=== PATIENT | female | born 1965 | race Hispanic/Latino ===

== ENCOUNTER 2017-10-24 14:51 | Observation (INO) | payer MEDICAID, SELFPAY ==
[2017-10-24] VITALS (18 sets, daily range): BP systolic 115–190; BP diastolic 72–110; PULSE 54–98; RESP 12–21; TEMP 36.3–36.9; O2SAT 95–99; BMI 29.7; BMI 27.4; BMI 27.5
[2017-10-24 15:11] LABS: Bedside Glucose 100 mg/dL (70-110)
--- NOTE | 2017-10-24 15:21 | CT_ITS ---
STUDY: CT BRAIN WITHOUT CONTRAST REASON FOR EXAM: Female, 52 years old. Slurred speech. Right facial droop for 2 days. RADIATION DOSAGE (If Supplied By Facility): CTDIvol = ( 44.99 ) mGy, DLP = ( 745.49 ) mGycm TECHNIQUE: Transaxial CT imaging of the brain was performed without administration of intravenous contrast material. Individualized dose optimization techniques were used for this CT. COMPARISON: Comparison is made with prior study dated April 10, 2017. FINDINGS: Normal soft tissue structures. Normal calvarium. Normal size ventricles and extra-axial spaces for the patient's age. Normal white matter tracts of the cerebral hemispheres. Normal basal ganglia and thalami. Normal brainstem. Normal cerebellum. There is no intracranial hemorrhage. There are no findings of an acute ischemic infarction. Normal visualized paranasal sinuses. CT/Brain/Head without Contrast IMPRESSION: Normal unenhanced CT scan of the brain. Electronically Signed: Vinh Win MD at 15:55 EDT Tel [phone], Service support ,
--- NOTE | 2017-10-24 15:21 | EKG12_ITS ---
Test Reason : NEURO S/SX Blood Pressure : / mmHG Vent. Rate : 060 BPM Atrial Rate : 060 BPM P-R Int : 162 ms QRS Dur : 114 ms QT Int : 424 ms P-R-T Axes : 036 -10 036 degrees QTc Int : 424 ms Normal sinus rhythm Normal ECG Confirmed by CHAZ BURNS ([id number]), web content editor FERNANDO MCCLURE ([id number]) on 11/05/2017 5:39:43 PM Referred By: CONSUELO Confirmed By:CHAZ BURNS
--- NOTE | 2017-10-24 15:25 | RAD_ITS ---
STUDY: X-RAY CHEST REASON FOR EXAM: Female, 52 years old. History of stroke. TECHNIQUE: Single AP portable view of the chest. COMPARISON: Comparison is made with prior study dated April 10, 2017. FINDINGS: EKG electrodes are seen. Limited inspiratory effort with impaired aeration at the lung bases. There is no demonstrated pleural abnormality. Normal size heart. Normal mediastinum and edwin. Normal visualized pulmonary arteries. There is atherosclerotic tortuosity of the aortic arch and descending thoracic aorta. There are degenerative changes of the visualized thoracic spine. Normal visualized ribs, clavicles, and shoulders. There is no demonstrated abnormality of the visualized soft tissue structures of the upper abdomen. RAD/Chest 1 View IMPRESSION: Limited inspiration. Impaired aeration at both lung bases. Electronically Signed: Vinh Win MD at 15:43 EDT Tel [phone], Service support ,
[2017-10-24 15:43] LABS: Bacteria 0 SEEN /hpf (None Seen); Mucous, Urine 0 SEEN /hpf (<or=2+); Red Blood Cells-Urine 0 SEEN /hpf (0-5)
[2017-10-24 15:49] LABS: Absolute Lymphocyte Count 2.69 X10^3/ul (0.83-4.51); Absolute Neutrophil Count 3.3 X10^3/uL (2.0-7.7); Basophil# 0.03 X10^3/uL; Basophil% 0.5 % (0-1); Eosinophil# 0.12 X10^3/uL; Eosinophils% 1.8 % (0-5); Hematocrit 40.4 % (37-47); Hemoglobin 13.7 g/dl (12.0-15.0); Lymphocyte # 2.69 X10^3/ul (4.0); Lymphocyte % 41.3 % (19-41); Mean Corp Hgb Conc 33.9 g/gl (32-36); Mean Corpuscular Hgb 31.2 pg (27.0-32.0); Mean Platelet Vol. 10.5 fl (6.2-12.0); Monocyte# 0.39 X10^3/uL; Neutrophil # 3.27 X10^3/uL (2.7-7.7); Neutrophil % 50.2 % (47-70); Platelet Count 215 K/mm3 (150-450); RBC Distribution Width CV 13.3 % (11.6-14.6); RBC Distribution Width SD 44.7 fl (35.1-43.9); Red Blood Count 4.39 M/mm3 (4.2-5.4); White Blood Count 6.5 K/mm3 (4.4-11.0)
[2017-10-24 15:54] LABS: Color, Urine Yellow (Yellow); Glucose, Dipstick Normal (Normal); Ketone-Dipstick Negative (Negative); Leukocyte Esterase-Dipstick 100 /ul (Negative); Nitrite-Dipstick Negative (Negative); Occult Blood-Urine Negative /ul (Negative); Protein-Dipstick Negative (Negative); Specific Gravity, Urine 1.005 (1.002-1.030); Urine Bilirubin Dipstick Negative (Negative); Urine Clarity Clear (Clear); Urine Urobilinogen Normal (Normal)
[2017-10-24] MEDS: Morphine 4 MG/ML Syringe IV (15:55)
[2017-10-24] MEDS: Ondansetron 4 MG/2 ML Vial IV (15:55)
[2017-10-24] MEDS: 0.9% Normal Saline 1,000 ML 100 ML IV (15:55)
[2017-10-24 15:56] LABS: Partial Thromboplast Time 28.1 Seconds (24.1-36.2)
[2017-10-24 16:00] LABS: POSITIVE COUNT NO; POSITIVE DIFFERENTIAL NO; POSITIVE MORPHOLOGY NO
[2017-10-24 16:05] LABS: Squamous Epithelial Cells - UA 0-5 SEEN /hpf (5-10); White Blood Cells 0-5 SEEN /hpf (0-5)
[2017-10-24 16:10] LABS: Anion Gap 8 (5-15); BUN 16 mg/dL (7-18); BUN/Creat Ratio 20.4 RATIO (10-20); Calcium,Total 8.6 mg/dL (8.5-10.1); Chloride 105 mmol/L (98-107); Creatinine, Serum 0.78 mg/dL (0.55-1.02); EST Glomerular Filtration Rate 81 mL/min (>60); Est Glom Filt Rate - Afr Amer 98 mL/min (>60); Estimated Creatinine Clearance 75.06 ml/min; Glucose 91 mg/dL (74-106); Potassium 3.4 mmol/L (3.5-5.1); Sodium Level 139 mmol/L (136-145)
--- NOTE | 2017-10-24 16:12 | CT_ITS ---
CTA of the neck Indication slurred speech and facial droop TECHNIQUE: CTA of the neck was performed scanning in a dynamic enhanced fashion from the cervicothoracic junction to the skull base followed by sagittal and coronal reconstructions. Radiographic technique was optimized to limit patient radiation dose. FINDINGS: There is minor soft plaque seen within the common carotids carotid bulbs and internal carotids bilaterally without evidence for hemodynamically significant stenosis. The vertebrals are codominant and normal in caliber without appreciable plaque. CT/CTA Neck W/WO Contrast IMPRESSION: Minor atherosclerotic plaquing. No evidence for hemodynamically significant carotid stenosis utilizing NASCET criteria Electronically Signed: Charlse Hodgson MD at 17:03 EDT , Service support ,
--- NOTE | 2017-10-24 16:12 | CT_ITS ---
STUDY: CTA OF THE BRAIN REASON FOR EXAM: Female, 52 years old. Possible stroke RADIATION DOSAGE (If Supplied By Facility): CTDIvol = ( 21.90 ) mGy, DLP = ( 720.93 ) mGycm TECHNIQUE: CT angiography was performed with a multi-detector CT scanner. Data acquisition was obtained from the skull base through the vertex following intravenous administration of ml of . MIP images were reconstructed from the axial data set. Post-processing of the angiographic images was performed, with multiplanar reformation and 3D reconstruction. Individualized dose optimization techniques were used for this CT. COMPARISON: None. FINDINGS: Normal bilateral petrous carotid arteries. Normal right cavernous carotid artery with a normal supraclinoid bifurcation. Normal left cavernous carotid artery with a normal supraclinoid bifurcation. Normal right A1 segments of the anterior cerebral artery. Normal left A1 segments of the anterior cerebral artery. Normal intact anterior communicating artery (ACOM). Normal bilateral A2 segments of the anterior cerebral arteries. Normal right M1 and M2 segments of the middle cerebral arteries, with a normal M1 bifurcation. Normal left M1 and M2 segments of the middle cerebral arteries, with a normal M1 bifurcation. Posterior communicating arteries are not visualized consistent with normal development old variant. Normal bilateral vertebral arteries. Normal basilar artery with a normal basilar bifurcation. The visualized bilateral superior cerebellar (SCA) arteries are normal. Normal bilateral P1, P2 and visualized P3 segments of the posterior cerebral arteries. There is no demonstrated aneurysm of the [place]. There is no demonstrated abnormality of the visualized brain. CT/CTA Head W/WO Contrast IMPRESSION: Normal [place] without a demonstrated aneurysm or hemodynamically significant stenosis. Electronically Signed: Charles Hodgson MD at 17:06 EDT , Service support ,
--- NOTE | 2017-10-24 18:26 | HP.PCM_ITS ---
Problem List (1) Depression Status: Chronic (2) Hypertension Status: Chronic History of Present Illness Date of Admission: 10/24/17 Chief Complaint: Headache, reported facial droop and slurred speech. The patient is a 52 year old F with past medical history as mentioned above presented to the emergency department because of headache, reported slurred speech and facial droop. The patient is Vietnamese speaker and she does not speak Colombian. Her son was at the bedside and he was translating for him. According to the son, and main presenting complaint was headache that started earlier today. Patient mentioned that the headache is in both sides of her head, temporal region, throbbing headache, severe, radiates to her back of the neck and without aggravating or relieving factors. Reportedly, patient had right sided facial droop and she had one episode of slurred speech with her she was not able to get the proper words out. Her son mentioned that she had a history of polio and she has chronic droop on the right side of his face although it was not very obvious on examination. In the emergency department, her vital signs were stable. Her routine blood work was unremarkable except for mild hypokalemia with potassium of 3.4. Urinalysis revealed no evidence of acute UTI or cystitis. EKG revealed normal sinus rhythm without evidence of acute ischemic changes or cardiac arrhythmias. CT scan brain showed no acute infarction or hemorrhage. CTA of the head and neck showed no evidence of hemodynamically significant vascular disease or stenosis. Chest x-ray showed no acute infiltrate, consolidation or effusion. She is being admitted for headache and strokelike symptoms for evaluation. Past Medical History Past Medical History (Chronic Problems): Chronic Problems Depression (Chronic) Hypertension (Chronic) Allergies Penicillins Allergy (Verified 10/24/17 14:53) Itching Home Medications: Ambulatory Orders Medication Instructions Recorded Hydrochlorothiazide 12.5 mg PO DAILY 10/24/17 Lisinopril [Zestril] 10 mg PO DAILY 10/24/17 Sertraline HCl [Zoloft] 50 mg PO DAILY 10/24/17 Surgical History: cholecystectomy, tonsillectomy Psychiatric History: Depression PREVENTION SPECIALIST History: No pertinent PREVENTION SPECIALIST history Smoking Status: Current every day smoker Alcohol: None Drugs: None - *Family History Maternal History Items: No pertinent history Paternal History Items: No pertinent history Review of Systems Constitutional: Reports: Weakness. Denies: Anorexia, Chills, Fever Eyes: Denies: Blurred vision, Double vision, Drainage, Redness HEENT: Reports: Head Aches. Denies: Difficulty Hearing, Ear Pain, Eye Pain, Nasal Congestion, Sore Throat Cardiovascular: Denies: Chest Pain, Chest Pressure, Chest Tightness, Edema, Light Headedness, Palpitations, Syncope Respiratory: Denies: Cough, Pleuritic Pain, Shortness of Breath, Sputum production, Wheezing Gastrointestinal: Denies: Abdominal Pain, Constipation, Diarrhea, Nausea, Vomiting Genitourinary: Denies: Dysuria, Frequency, Hematuria Musculoskeletal: Denies: Arm Pain, Back Pain, Foot Pain Skin: Denies: Dryness, Rash Neurological: Reports: Change in Speech, Headaches. Denies: Balance problems, Numbness, Tingling Psychiatric: Reports: Depression. Denies: Anxiety Endocrine: Denies: Change in Body Habitus, Polydipsia VTE Information - Inpt Only VTE Present on Admission: No VTE Mechan Device Prophylaxis: None VTE Pharm Prophylaxis ordered?: No - Physical Exam General: Alert, Oriented x3, Cooperative, No apparent distress HEENT: Atraumatic, PERRLA, EOMI Oral: Moist Mucosa, No Gingival or Mucosal Lesions/ Ulcerations Neck: Supple, No JVD, Negative Carotid Bruits, Trachea Midline, Thyroid Normal Size and Texture Lungs: Clear to auscultation, No rhonchi, No wheeze, No rales Cardiovascular: Regular rate, Regular Rhythm, Normal S1, Normal S2, No murmurs, PMI Normal Abdomen: Bowel Sounds Present, Soft, Non Tender, Non-Distended, No Hepato- splenomegaly Extremities: No clubbing, No cyanosis, No edema Skin: No rashes, No breakdown Lymphatic: No Cervical, Supraclavicular, or Inguinal Adenopathy Neurological: Cranial nerves II-XII grossly intact, Motor Exam 5/5 strength throughout Psych/Mental Status: Normal Affect, Appropriate, Alert and oriented to time, place, person, mood and affect Vital Signs Temp Pulse Resp BP Pulse Ox 97.4 F L 98 12 115/72 96 10/24/17 14:54 10/24/17 18:06 10/24/17 18:06 10/24/17 18:06 10/24/17 18:06 Oxygen Delivery Method Room Air Laboratory Tests 3 10/24/17 10/24/17 10/24/17 Range/Units 15:37 15:05 14:58 WBC (4.4-11.0) K/mm3 RBC (4.2-5.4) M/mm3 Hgb (12.0-15.0) g/dl Hct (37-47) % MCV (81-99) fL MCH (27.0-32.0) pg MCHC (32-36) g/gl RDW (11.6-14.6) % RDW Differential (35.1-43.9) fl Plt Count (150-450) K/mm3 MPV (6.2-12.0) fl Immature Gran % (Auto) (0.0-0.9) % Neut % (Auto) (47-70) % Lymph % (Auto) (19-41) % Owen % (Auto) (0-10) % Eos % (Auto) (0-5) % Baso % (Auto) (0-1) % Absolute Neuts (auto) (2.0-7.7) X10^3/uL Absolute Lymphs (auto) (0.83-4.51) X10^3/ul Total Counted PT (11.7-14.9) SECONDS INR APTT (24.1-36.2) Seconds Sodium 139 (136-145) mmol/L Potassium 3.4 L (3.5-5.1) mmol/L Chloride 105 (98-107) mmol/L Carbon Dioxide 26.0 (21.0-32.0) mmol/L Anion Gap 8 (5-15) BUN 16 (7-18) mg/dL Creatinine 0.78 (0.55-1.02) mg/dL Estim Creat Clear Calc 75.06 ml/min Est GFR (MDRD) Af Amer 98 (>60) mL/min Est GFR (MDRD) Non-Af 81 (>60) mL/min BUN/Creatinine Ratio 20.4 H (10-20) RATIO Glucose 91 (74-106) mg/dL Calcium 8.6 (8.5-10.1) mg/dL Urine Color Yellow (Yellow) Urine Clarity Clear (Clear) Urine pH 7.0 (5.0 - 8.0) Ur Specific [place] 1.005 (1.002-1.030) Urine Protein Negative (Negative) mg/dl Urine Glucose (UA) Normal (Normal) mg/dl Urine Ketones Negative (Negative) mg/dl Urine Occult Blood Negative (Negative) /ul Urine Nitrite Negative (Negative) Urine Bilirubin Negative (Negative) mg/dL Urine Urobilinogen Normal (Normal) mg/dl Ur Leukocyte Esterase 100 H (Negative) /ul Urine RBC 0 SEEN (0-5) /hpf Urine WBC 0-5 SEEN (0-5) /hpf Ur Squamous Epith Cells 0-5 SEEN (5-10) /hpf Urine Bacteria 0 SEEN (None Seen) /hpf Urine Mucus 0 SEEN (<or=2+) /hpf POC Glucose 100 (70-110) mg/dL 3 10/24/17 10/24/17 Range/Units 14:58 14:58 WBC 6.5 (4.4-11.0) K/mm3 RBC 4.39 (4.2-5.4) M/mm3 Hgb 13.7 (12.0-15.0) g/dl Hct 40.4 (37-47) % MCV 92.0 (81-99) fL MCH 31.2 (27.0-32.0) pg MCHC 33.9 (32-36) g/gl RDW 13.3 (11.6-14.6) % RDW Differential 44.7 H (35.1-43.9) fl Plt Count 215 (150-450) K/mm3 MPV 10.5 (6.2-12.0) fl Immature Gran % (Auto) 0.200 (0.0-0.9) % Neut % (Auto) 50.2 (47-70) % Lymph % (Auto) 41.3 H (19-41) % Owen % (Auto) 6.0 (0-10) % Eos % (Auto) 1.8 (0-5) % Baso % (Auto) 0.5 (0-1) % Absolute Neuts (auto) 3.3 (2.0-7.7) X10^3/uL Absolute Lymphs (auto) 2.69 (0.83-4.51) X10^3/ul Total Counted Not Reportable PT 13.0 (11.7-14.9) SECONDS INR 1.0 APTT 28.1 (24.1-36.2) Seconds Sodium (136-145) mmol/L Potassium (3.5-5.1) mmol/L Chloride (98-107) mmol/L Carbon Dioxide (21.0-32.0) mmol/L Anion Gap (5-15) BUN (7-18) mg/dL Creatinine (0.55-1.02) mg/dL Estim Creat Clear Calc ml/min Est GFR (MDRD) Af Amer (>60) mL/min Est GFR (MDRD) Non-Af (>60) mL/min BUN/Creatinine Ratio (10-20) RATIO Glucose (74-106) mg/dL Calcium (8.5-10.1) mg/dL Urine Color (Yellow) Urine Clarity (Clear) Urine pH (5.0 - 8.0) Ur Specific [place] (1.002-1.030) Urine Protein (Negative) mg/dl Urine Glucose (UA) (Normal) mg/dl Urine Ketones (Negative) mg/dl Urine Occult Blood (Negative) /ul Urine Nitrite (Negative) Urine Bilirubin (Negative) mg/dL Urine Urobilinogen (Normal) mg/dl Ur Leukocyte Esterase (Negative) /ul Urine RBC (0-5) /hpf Urine WBC (0-5) /hpf Ur Squamous Epith Cells (5-10) /hpf Urine Bacteria (None Seen) /hpf Urine Mucus (<or=2+) /hpf POC Glucose (70-110) mg/dL Clinical Impression(s) from Imaging Studies Brain CT 10/24/17 15:21 IMPRESSION: Normal unenhanced CT scan of the brain. Electronically Signed: Vinh Win MD at 15:55 EDT Tel [phone], Service support , Chest X-Ray 10/24/17 15:25 IMPRESSION: Limited inspiration. Impaired aeration at both lung bases. Electronically Signed: Vinh Win MD at 15:43 EDT Tel [phone], Service support , Head CTA 10/24/17 16:12 IMPRESSION: Normal [place] without a demonstrated aneurysm or hemodynamically significant stenosis. Electronically Signed: Charles Hodgson MD at 17:06 EDT , Service support , Neck CTA 10/24/17 16:12 IMPRESSION: Minor atherosclerotic plaquing. No evidence for hemodynamically significant carotid stenosis utilizing NASCET criteria Electronically Signed: Charles Hodgson MD at 17:03 EDT , Service support , Assessment/Plan This is a 52 years old female patient presented to the medicine because of bitemporal headache and reported and questionable slurred speech and facial droop and she is being admitted for strokelike symptoms for evaluation. #1 bitemporal headache/slurred speech/right facial droop: Main complaint was bitemporal headache and generalized weakness. Her symptoms is not typical for stroke or TIA. Initial workup including CT scan brain without contrast, CTA of the head and neck was unremarkable. Vital signs are stable. Routine blood work is unremarkable. She does have history of hypertension. Plan: Admit to PCU for observation, cardiac monitoring, NIH stroke scale, start baby aspirin, Lipitor, fasting lipid profile, MRI brain, 2D echocardiogram, PT OT evaluation and treatment. #2 hypertension: Blood pressure stable, continue lisinopril and HCTZ. #3 depression: Continue Zoloft. #4 DVT prophylaxis: Low risk patient, no prophylaxis indicated. This note was generated with [employer] dictation software. It may contain incorrect words, spelling, and punctuation that were not noted in checking the note before signing. Code Visit OBSV E&M: 23079 Initial observation care L3
--- NOTE | 2017-10-24 18:28 | ECHOD_ITS ---
Reason For Study: TIA/CVA Procedure This was a 2D Doppler, Color Flow transthoracic echocardiogram. Exam performed portable in patient room. Left Ventricle Normal size and thickness. The estimated ejection fraction is 65 %. Normal diastology for age. No regional wall motion abnormalities noted. Right Ventricle Normal size and thickness. Normal systolic function. Atria The left atrium is mildly enlarged. Normal right atrium. Normal atrial septum. Bubble contrast study negative for right to left interatrial shunt. Mitral Valve The mitral valve is structurally normal. No prolapse or stenosis seen. Tricuspid Valve Normal tricuspid valve. Mild (1+) tricuspid valve insufficiency. Right ventricular systolic pressure estimated to be 26 mmHg. Aortic Valve Trisinus/trileaflet aortic valve. Pulmonic Valve Normal pulmonic valve. Great Vessels Normal aortic root. Normal arch. Normal inferior vena cava. Inferior vena cava collapse with sniff. Pericardium/Pleural No pericardial effusion. Medication Performed a rapid injection of agitated mix of 9 cc saline and 1cc air to assess for atrial septal defect. MMode/2D Measurements & Calculations LVIDd: 4.2 cm IVSd: 1.0 cm Ao root diam: 3.1 cm LVIDs: 2.7 cm LVPWd: 1.1 cm LA dimension: 3.7 cm RVDd: 2.7 cm FS: 36.7 % LAV(MOD-bp): 72.9 ml LVAd ap4: 29.8 cm2 SV(MOD-sp4): 52.7 ml LAV(MOD-bp) Indexed: 38.7 ml/m2 EDV(MOD-sp4): 96.6 ml LAV(MOD-sp2): 77.8 ml EDV(sp4-el): 100.9 ml LAV(MOD-sp4): 68.3 ml LVAs ap4: 18.0 cm2 ESV(MOD-sp4): 43.8 ml ESV(sp4-el): 44.4 ml EF(MOD-sp4): 54.6 % EF(sp4-el): 56.0 % SV(sp4-el): 56.5 ml LA A4 area: 22.5 cm2 RA A4 area: 17.5 cm2 Time Measurements MV dec time: 0.26 sec Doppler Measurements & Calculations MV E max kenneth: 82.0 cm/sec Lat Peak E' Kenneth: 10.7 cm/sec Med Peak E' Kenneth: 8.4 cm/sec MV A max kenneth: 67.3 cm/sec E/E' lat: 7.6 E/E' med: 9.8 MV E/A: 1.2 Ao V2 max: 161.6 cm/sec LV V1 max: 109.2 cm/sec PA V2 max: 92.9 cm/sec Ao max P.4 mmHg LV V1 max P.8 mmHg TR max kenneth: 237.1 cm/sec TR max P.5 mmHg Interpretation Summary The estimated ejection fraction is 65 %. Normal diastology for age. Bubble contrast study negative for right to left interatrial shunt. Mild (1+) tricuspid valve insufficiency. Right ventricular systolic pressure estimated to be 26 mmHg. There is no comparison study available. Ordering Physician: Chel Craven Performed By: Marry Dent RDCS
--- NOTE | 2017-10-24 18:28 | MRI_ITS ---
STUDY: MRI BRAIN WITHOUT CONTRAST REASON FOR EXAM: Female, 52 years old. Right facial droop and slurred speech TECHNIQUE: Standardized multiplanar fat and water weighted pulse sequences were obtained. COMPARISON: CT of the brain on October 24, 2017 FINDINGS: Normal size of the ventricles and extra-axial spaces for the patient's age. Mild periventricular white matter ischemic changes are noted without mass effect or restricted diffusion.. Normal bilateral basal ganglia. Normal thalami. There is no extra-axial fluid accumulation. Normal flow voids within the major intracranial circulation suggesting patency by spin echo criteria. 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 Normal Infundibular stalk, optic chiasm and hypothalamus. Normal tectal plate and pineal gland. Normal midbrain, roxana and medulla. Normal cerebellum. Normal basal cisterns. Normal bilateral temporal bones. Normal bilateral internal auditory canals. No demonstrated orbital abnormality, within the constraints of a routine brain study. There is mild mucosal thickening of the maxillary ethmoid and sphenoid sinuses. Normal calvarium and skull base. Normal visualized soft tissue structures. Normal visualized upper cervical spine. MRI/Brain without Contrast IMPRESSION: Mild periventricular white matter ischemic changes. No evidence for acute infarct. 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
[2017-10-24] MEDS: Acetaminophen 325 MG Tablet 650 MG PO (20:49)
[2017-10-25] VITALS (14 sets, daily range): BP systolic 96–152; BP diastolic 55–78; PULSE 55–67; RESP 16–18; TEMP 36.4–36.9; O2SAT 94–98; BMI 27.4
--- NOTE | 2017-10-25 | ED.VISSUMM ---
- ER Visit Summary Date of Service: 10/25/17 Chief Complaint: Headache, slurred speech, right facial droop History of Present Illness: The patient is a [address] Carter. She reports that she has a headache that began 2 days ago. It is a throbbing pain over both temples. Is gradually gotten worse. Is 9 out of 10 severity. She denies any similar headaches in the past. No recent injury to her head. Patient reports that she has right facial droop and slurred speech that began 2 days ago as well. She denies any fever or chills. She has had nausea without vomiting. She also complains of generalized weakness. Physical Examination: Vitals: Stable. Afebrile. General: Well-nourished and well-developed. Head: Normocephalic atraumatic. Neck: Supple, no lymphadenopathy. No JVD. Nontender. Cardiovascular: Regular rate and rhythm. No murmurs. Respiratory: No respiratory distress. Clear to auscultation bilaterally. Abdominal: Soft, nontender, nondistended, normal bowel sounds. No guarding, rebound, or peritoneal signs. Back: Nontender. Extremities: Nontender, no edema. Skin: Normal color, no rash. Neurologic: Alert and oriented ?3. Right facial droop. Otherwise cranial 2 through 12 are intact. She does have slurred speech and dysarthria. Her NIH scale is 4. Psych: Normal affect. Test Results: EKG is sinus at 60 with no acute changes. UA is negative. Coags are normal. Chem-7 is more for potassium 3.4. CBC is more for the facets of 41. CT head is normal. CTA of head shows normal [place]. CTA of neck shows no significant disease. Chest x-ray shows poor inspiration no acute disease. Emergency Department Course and Treatment: Patient has an NIH scale of 4. However, she is not a TPA candidate due to the timeframe of 2 days from onset. She was given morphine and Zofran IV. She is resting comfortably. Treatment Plan: Patient was discussed with Dr. Craven. She will be admitted to the hospital for further evaluation and treatment. Disposition: Admitted in stable condition. Impression: 1. CVA. 2. Cephalgia. This note was generated with e-[employer]ation software. It may contain incorrect words, spelling, and punctuation that were not noted in review of the chart prior to signing ED Disposition - Plan for ED Patient: Disposition: Acute Care Hospital [facility] Chief Complaint: Neuro S/Sx
--- NOTE | 2017-10-25 00:03 | ED.DCSUM_ITS ---
- ER Visit Summary Date of Service: 10/25/17 Chief Complaint: Headache, slurred speech, right facial droop History of Present Illness: The patient is a [address] Carter. She reports that she has a headache that began 2 days ago. It is a throbbing pain over both temples. Is gradually gotten worse. Is 9 out of 10 severity. She denies any similar headaches in the past. No recent injury to her head. Patient reports that she has right facial droop and slurred speech that began 2 days ago as well. She denies any fever or chills. She has had nausea without vomiting. She also complains of generalized weakness. Physical Examination: Vitals: Stable. Afebrile. General: Well-nourished and well-developed. Head: Normocephalic atraumatic. Neck: Supple, no lymphadenopathy. No JVD. Nontender. Cardiovascular: Regular rate and rhythm. No murmurs. Respiratory: No respiratory distress. Clear to auscultation bilaterally. Abdominal: Soft, nontender, nondistended, normal bowel sounds. No guarding, rebound, or peritoneal signs. Back: Nontender. Extremities: Nontender, no edema. Skin: Normal color, no rash. Neurologic: Alert and oriented ?3. Right facial droop. Otherwise cranial 2 through 12 are intact. She does have slurred speech and dysarthria. Her NIH scale is 4. Psych: Normal affect. Test Results: EKG is sinus at 60 with no acute changes. UA is negative. Coags are normal. Chem-7 is more for potassium 3.4. CBC is more for the facets of 41. CT head is normal. CTA of head shows normal [place]. CTA of neck shows no significant disease. Chest x-ray shows poor inspiration no acute disease. Emergency Department Course and Treatment: Patient has an NIH scale of 4. However, she is not a TPA candidate due to the timeframe of 2 days from onset. She was given morphine and Zofran IV. She is resting comfortably. Treatment Plan: Patient was discussed with Dr. Craven. She will be admitted to the hospital for further evaluation and treatment. Disposition: Admitted in stable condition. Impression: 1. CVA. 2. Cephalgia. This note was generated with [employer] software. It may contain incorrect words, spelling, and punctuation that were not noted in review of the chart prior to signing ED Disposition - Plan for ED Patient: Disposition: Acute Care Hospital [facility] Chief Complaint: Neuro S/Sx
[2017-10-25] MEDS: Acetaminophen 325 MG Tablet 650 MG PO ×3 (01:14→18:37)
[2017-10-25] MEDS: Enoxaparin 40 MG/0.4 ML Syringe SC (05:26)
[2017-10-25] MEDS: Ondansetron 4 MG/2 ML Vial IV (05:27)
[2017-10-25] MEDS: 0.9% NaCl Peripheral Flush Adult/Peds IV (05:27)
[2017-10-25 06:51] LABS: Anion Gap 8 (5-15); BUN 14 mg/dL (7-18); BUN/Creat Ratio 19.5 RATIO (10-20); Calcium,Total 8.1 mg/dL (8.5-10.1); Chloride 111 mmol/L (98-107); Cholesterol 228 mg/dL (200); Creatinine, Serum 0.72 mg/dL (0.55-1.02); EST Glomerular Filtration Rate 90 mL/min (>60); Est Glom Filt Rate - Afr Amer 109 mL/min (>60); Estimated Creatinine Clearance 81.31 ml/min; Glucose 92 mg/dL (74-106); High Density Lipoprotein 30 mg/dL; Sodium Level 144 mmol/L (136-145); Triglycerides 273 mg/dL; Very Low Density Lipoprotein 55 mg/dL (5-40)
[2017-10-25] MEDS: Aspirin 81 MG TAB.CHEW PO (08:39)
[2017-10-25] MEDS: HYDROCHLOROTHIAZIDE 12.5 MG CAPSULE PO (10:54)
[2017-10-25] MEDS: Lisinopril 10 MG Tablet PO (10:54)
[2017-10-25] MEDS: Sertraline 50 MG Tablet PO (11:00)
--- NOTE | 2017-10-25 17:46 | PCM.PN.HOSP ---
Subjective: CC: Headache Objective: she rate her headache as 5 out of 10, she still has significant nausea but no vomiting. Vitals/I&O's: Vital Signs Temp Pulse Resp BP Pulse Ox 98.4 F 55 L 16 119/60 98 10/25/17 14:30 10/25/17 14:30 10/25/17 14:30 10/25/17 14:30 10/25/17 14:30 Oxygen Delivery Method Room Air Weight: 74.843 kg Body Mass Index (BMI) 27.4 Intake and Output for Last 24 Hours 10/23/17 10/24/17 10/25/17 23:59 23:59 23:59 Intake Total 395 / 395 500 / 500 Output Total 2 / 2 Balance 395 / 395 498 / 498 General: Alert, Oriented x3 HEENT: Atraumatic Oral: Moist Mucosa Neck: Supple, No JVD Lungs: Clear to auscultation Cardiovascular: Regular rate, Normal S1, Normal S2 Abdomen: Bowel Sounds Present, Soft, Non Tender Neurological: Cranial nerves II-XII grossly intact, Neuro grossly intact, Motor Exam 5/5 strength throughout Laboratory Results 10/25/17 06:15: Sodium 144, Potassium 4.0, Chloride 111 H, Carbon Dioxide 25.0, Anion Gap 8, BUN 14, Creatinine 0.72, Estim Creat Clear Calc 81.31, Est GFR (MDRD) Af Amer 109, Est GFR (MDRD) Non-Af 90, BUN/Creatinine Ratio 19.5, Glucose 92, Calcium 8.1 L, Triglycerides 273 H, Cholesterol 228 H, LDL Cholesterol 143 H, VLDL Cholesterol 55 H, HDL Cholesterol 30 L Current Medications Acetaminophen (Tylenol) 650 mg PO Q4H PRN PRN PRN Reason: Headache/Temp>99F Last Admin: 10/25/17 08:39 Dose: 650 mg Aspirin (Aspirin, Baby) 81 mg PO DAILY@0800 [facility] Last Admin: 10/25/17 08:39 Dose: 81 mg Atorvastatin Calcium (Lipitor) 80 mg PO QHS [facility] Hydrochlorothiazide (Hydrochlorothiazide) 12.5 mg PO DAILY [facility] Last Admin: 10/25/17 10:54 Dose: 12.5 mg Ketorolac Tromethamine (Toradol) 15 mg IM Q6H PRN PRN PRN Reason: HEADACHE Stop: 10/30/17 14:21 Lisinopril (Zestril) 10 mg PO DAILY [facility] Last Admin: 10/25/17 10:54 Dose: 10 mg Magnesium Hydroxide (Milk Of Magnesia) 30 ml PO DAILY PRN PRN Reason: Constipation Ondansetron HCl (Zofran) 4 mg IV Q6H PRN PRN PRN Reason: NAUSEA/VOMITING Last Admin: 10/25/17 05:27 Dose: 4 mg Pantoprazole Sodium (Protonix) 40 mg PO DAILY [facility] Promethazine HCl (Phenergan) 6.25 mg IV Q4H PRN PRN PRN Reason: NAUSEA/VOMITING Sertraline HCl (Zoloft) 50 mg PO DAILY [facility] Last Admin: 10/25/17 11:00 Dose: 50 mg Sodium Chloride () 5 - 30 ml IV UD PRN PRN Reason: SALINE FLUSH Last Admin: 10/25/17 05:27 Dose: 10 ml Medical Necessity - Tobacco Use Smoking Status: Unknown if ever smoked Tobacco Use: Cigarettes Assessment/Plan 1 Bitemporal headache; will star on Toradol. Will obtain MRI of the brain. 2 hypertension; continue lisinopril and HCTZ. 3 depression; on Zoloft. 4 DVT prophylaxis; early ambulation. Code Visit OBSV E&M: 06404 Observ/hosp same date L1
[2017-10-25] MEDS: Ketorolac 15 MG/ML Vial IM (21:30)
[2017-10-25] MEDS: Atorvastatin Calcium 80 MG Tablet PO (21:30)
[2017-10-26] VITALS (7 sets, daily range): BP systolic 123–144; BP diastolic 75–79; PULSE 52–67; RESP 16–18; TEMP 36.4–36.8; O2SAT 96–98; BMI 27.4
--- NOTE | 2017-10-26 07:58 | NURSING ---
pt back from stress test. refusing to put on heart monitor, educated on purpose of heart monitor, pt still refusing.
[2017-10-26] MEDS: Lisinopril 10 MG Tablet PO (08:39)
[2017-10-26] MEDS: Pantoprazole Sodium 40 MG Tablet PO (08:39)
[2017-10-26] MEDS: Aspirin 81 MG TAB.CHEW PO (08:39)
[2017-10-26] MEDS: HYDROCHLOROTHIAZIDE 12.5 MG CAPSULE PO (08:39)
[2017-10-26] MEDS: Sertraline 50 MG Tablet PO (08:41)
--- NOTE | 2017-10-26 11:28 | PCM.DC ---
- Discharge Diagnoses Current Active Problems: Bitemporal headache Depression (Chronic) Hypertension (Chronic) You will use the following diet at home:: No restrictions Allergies/Adverse Reactions: Allergies Penicillins Allergy (Verified 10/24/17 14:53) Itching Medications to take at Discharge Hydrochlorothiazide 12.5 mg PO DAILY 10/24/17 Lisinopril [Zestril] 10 mg PO DAILY 10/24/17 Sertraline HCl [Zoloft] 50 mg PO DAILY 10/24/17 Primary Care Physician: Care Physician,No Primary [Primary Care Provider] -
--- NOTE | 2017-10-26 11:29 | PCM.DC.SUM ---
Discharge Date and Diagnosis Date of Admission: 10/24/17 Date of Discharge: 10/26/17 - Secondary Discharge Diagnosis Chronic Problems Depression (Chronic) Hypertension (Chronic) Hospital Course and Treatment Summary of Care Provided: This is a 52 years old female patient presented to the the [facility] with bitemporal headache and reported and questionable slurred speech and facial droop CT scan of the brain done in the emergency room was nonacute placed in the PCU for stroke workup. MRI of the brain showed mild periventricular white matter ischemic changes. 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 Headache was controlled with analgesia prior to her discharge. She was discharged home in a stable condition. Physical exam at the time of discharge; vital signs were stable. He was alert and oriented to time place and person. He did not appear to be any form of distress. S1 and S2 heard no murmur or gallop Lung exam was clear to auscultation with no adventitious sounds. Abdomen was soft nontender with normal bowel sounds. extremity exam did not reveal any edema, palpable pulses bilaterally. Neurologic exam was grossly intact. Discharge Diet: No Restrictions Home Medications: Medications to take at Discharge Hydrochlorothiazide 12.5 mg PO DAILY 10/24/17 Lisinopril [Zestril] 10 mg PO DAILY 10/24/17 Sertraline HCl [Zoloft] 50 mg PO DAILY 10/24/17 Primary Care Physician: Care Physician,No Primary [Primary Care Provider] - Medical Necessity - Tobacco Use Smoking Status: Unknown if ever smoked Tobacco Use: Cigarettes Meaningful Use Info Meaningful Use Diagnoses (Choose all that apply): None applicable Code Visit OBSV E&M: 16093 Observation care discharge
== END 2017-10-26 11:57 | disposition home or self-care (01) ==
LOC: ED 15:26 → PCU 18:11
PROVIDERS: Admitting Provider Hospitalist; Emergency Provider Emergency Medicine; Visit Provider Internal Medicine
DX: R51 Headache (principal); F32.9 Major depressive disorder, single episode, unspecified; Z79.899 Other long term (current) drug therapy; I10 Essential (primary) hypertension; R47.81 Slurred speech; R29.810 Facial weakness; R47.1 Dysarthria and anarthria; B91 Sequelae of poliomyelitis; E87.6 Hypokalemia; F17.210 Nicotine dependence, cigarettes, uncomplicated
CPT/HCPCS: 36415; 70450; 70496; 70498; 70551; 71045; 80048; 80061; 81001; 82962; 85025; 85610; 85730; 93005; 93306; 96361; 96372; 96374; 96375; 96376; 97162; 97165; 99218; 99285; J7030; Q9967; A4216; G0378; J2405

== ENCOUNTER 2023-03-21 11:22 | Emergency (ER) | payer OTHER, SELFPAY ==
[2023-03-21 11:24] VITALS: BP 147/83; PULSE 73; RESP 16; TEMP 36.6; O2SAT 100; BMI 26.4
--- NOTE | 2023-03-21 11:30 | EX.ED.DYSGE1 ---
HPI History of Present Illness Chief Complaint: Complaint Informant: patient Onset/Context/Timing Onset: Month(s) (1.5) Context: Gradual Onset Timing: Continuous Quality: Burning Location: Suprapubic Worsened by: Nothing Relieved by: Nothing Narrative Narrative: Patient presents with suprapubic burning that has been getting worse over the past 1-1/2 months. Patient states her urine feels hot. Patient went to the [facility] urgent care today and had a urinalysis done. Patient states it was read as negative and she was referred to the emergency department for further evaluation. Patient states she was told that she could have cancer. Patient denies any fevers or chills. Patient denies any nausea or vomiting. Patient denies any back pain. Patient denies any chest pain or shortness of breath. Patient denies any abnormal vaginal bleeding or discharge. PFSH PFSH Home Medications hydrochlorothiazide 12.5 mg capsule 12.5 mg PO DAILY WATER PILL 10/24/17 [History Last Taken 10/24/17] lisinopril 10 mg tablet 10 mg PO DAILY BLOOD PRESSURE 10/24/17 [History Last Taken 10/24/17] sertraline 50 mg tablet 50 mg PO DAILY MENTAL HEALTH 10/24/17 [History Last Taken 10/23/17] Allergy/AdvReac Type Severity Reaction Status Date / Time Penicillins Allergy Itching Verified 03/21/23 11:25 Surgical History (Updated 03/21/23 @ 12:[address] Brian Morris DO) H/O right wrist surgery History of back surgery Hx of appendectomy Hx of hand surgery Social History Smoking Status: Unknown if ever smoked ROS ROS ED Constitutional Constitutional ED: Denies chills or fever(s) Eyes Eyes: Denies blurry vision or change in vision ENT ENT ED: Denies rhinorrhea or sore throat Cardiovascular Cardiovascular: Denies chest pain or palpitations Respiratory/Chest Respiratory/Chest: Denies cough or dyspnea Gastrointestinal Gastrointestinal: Reports abdominal pain; Denies nausea or vomiting Genitourinary Genitourinary ED: Reports dysuria; Denies hematuria Musculoskeletal Musculoskeletal: Denies back pain or neck pain Integumentary Denies abscess or rash Neurologic Neurologic: Denies headache(s) or weakness Allergic/Immunologic Allergic/Immunologic ED: Denies mouth swelling or urticaria EXAM Physical Exam Const Vital Signs: 03/21/23 11:24 Temperature 98 F Temperature Source Temporal Pulse Rate 73 Respiratory Rate 16 Blood Pressure 147/83 H Blood Pressure Mean 104 Pulse Ox 100 Oxygen Delivery Method Room Air Positive well nourished and well developed General Appearance ED: well developed and NAD HEENT Reports moist mucous membranes Neck supple and no JVD Resp normal respiratory effort and clear to auscultation bilaterally Cardio regular rate and regular rhythm GI non-distended Palpation: soft and tender suprapubic; Negative for guarding or rebound tenderness present Neuro oriented x3, CN's II-XII intact bilaterally and no sensory deficits noted Sensorium / Orientation: alert Motor Exam: strength 5/5 throughout Psych mental status grossly normal MDM MDM MDM Narrative Medical decision making narrative: Differential diagnosis includes urinary tract infection, gastroenteritis, bowel obstruction, and pelvic mass. CT scan of the abdomen pelvis will be obtained to assess for bowel obstruction and perforation. Urinalysis will be obtained to assess for urinary tract infection. CBC will be obtained to assess for leukocytosis and anemia. Basic metabolic profile will be obtained to assess for electrolyte abnormality and renal function. Lab Data Attestation: I reviewed the patient's lab results. Lab results narrative: CBC was reviewed and was within normal limits. Basic metabolic profile was reviewed and was within normal limits. Urinalysis was reviewed and was within normal limits. Labs: Laboratory Results - last 24 hr 03/21/23 03/21/23 11:52 12:55 WBC 6.7 RBC 4.52 Hgb 13.6 Hct 40.1 MCV 88.7 MCH 30.1 MCHC 33.9 RDW Std Deviation 44.7 H RDW Coeff of Jazlyn 13.9 Plt Count 288 MPV 10.1 Immature Gran % (Auto) 0.300 Neut % (Auto) 53.7 Lymph % (Auto) 35.3 [place] % (Auto) 7.6 Eos % (Auto) 1.9 Baso % (Auto) 1.2 H Absolute Neuts (auto) 3.6 Absolute Lymphs (auto) 2.36 Nucleated RBC % 0 Sodium 139 Potassium 3.7 Chloride 106 Carbon Dioxide 30.0 Anion Gap 3 L BUN 15 Creatinine 0.77 Estim Creat Clear Calc 70.79 Est GFR (MDRD) Af Amer 98 Est GFR (MDRD) Non-Af 81 BUN/Creatinine Ratio 19.4 Glucose 110 H Calcium 8.9 Urine Color Yellow Urine Clarity Sl. Cloudy Urine pH 7.0 Ur Specific [place] 1.010 Urine Protein Negative Urine Glucose (UA) Normal Urine Ketones Negative Urine Occult Blood Negative Urine Nitrite Negative Urine Bilirubin Negative Urine Urobilinogen Normal Ur Leukocyte Esterase Negative Urine RBC 0 SEEN Urine WBC 0 SEEN Ur Squamous Epith Cells 0-5 SEEN Urine Bacteria 0 SEEN Urine Mucus 0 SEEN Radiography Diagnostic Testing: Clinical Impression(s) from Imaging Studies Abdomen/Pelvis CT 03/21/23 12:37 IMPRESSION: Stable infrarenal abdominal aortic aneurysm. Stable low-attenuation mass in the left adrenal gland. Electronically Signed: Vinh Win MD at 13:40 EDT , CT scan of the abdomen pelvis was obtained. There is a stable low-attenuation mass in the left adrenal gland and a stable infrarenal abdominal aortic aneurysm measuring approximately 3 cm. There is no mass noted. There is no free fluid or bowel obstruction. There is no free air noted. This was interpreted by the radiologist and was also independently reviewed by myself. Treatment and Re-Evaluation :: Patient was given IV fluids. Patient was advised of her findings. Patient is feeling better on reevaluation. Patient was instructed to follow-up with her primary care physician in 5 to 7 days. Patient was instructed to drink plenty of fluids. Patient was instructed return if worse in any way. Patient understood and was agreeable with the plan. All questions were answered. Discharge Plan Triage Chief Complaint: Complaint ED Provider: Brian Morris Dx/Rx/DC Orders Clinical Impression: Dysuria Instructions: ED Dysuria, Uncertain Cause (Adult) Prescriptions: No Action hydrochlorothiazide 12.5 MG capsule 12.5 mg PO DAILY sertraline 50 MG tablet 50 mg PO DAILY lisinopril 10 MG tablet 10 mg PO DAILY Primary Care Provider: Reji Carter Referrals: Reji Carter MD [Primary Care Provider] - 3-5 Days Disposition Disposition: Home, Self Care
[2023-03-21 11:57] LABS: Bacteria 0 SEEN /hpf (None Seen); Mucous, Urine 0 SEEN /hpf (<or=2+); Red Blood Cells-Urine 0 SEEN /hpf (0-5); White Blood Cells 0 SEEN /hpf (0-5)
[2023-03-21 12:06] LABS: Color, Urine Yellow (Yellow); Glucose, Dipstick Normal (Normal); Ketone-Dipstick Negative (Negative); Leukocyte Esterase-Dipstick Negative /ul (Negative); Nitrite-Dipstick Negative (Negative); Occult Blood-Urine Negative /ul (Negative); Protein-Dipstick Negative (Negative); Urine Bilirubin Dipstick Negative (Negative); Urine Clarity Sl. Cloudy (Clear); Urine Urobilinogen Normal (Normal)
[2023-03-21 12:12] LABS: Squamous Epithelial Cells - UA 0-5 SEEN /hpf (5-10)
--- NOTE | 2023-03-21 12:37 | CT_ITS ---
STUDY: CT ABDOMEN AND PELVIS WITHOUT CONTRAST REASON FOR EXAM: Female, 58 years old. Pelvic pain. RADIATION DOSAGE (If Supplied By Facility): CTDIvol = ( 10.38 ) mGy, DLP = ( 489.27 ) mGycm TECHNIQUE: Transaxial images were obtained from the dome of the diaphragm to the symphysis pubis without oral contrast, and without intravenous contrast. Sagittal and coronal images were reconstructed. Individualized dose optimization techniques were used for this CT. COMPARISON: Comparison is made with prior study dated May 15, 2015. FINDINGS: Stable minimal increased markings in the right middle lobe and lingular segment of the left upper lobe suggestive of mild scarring. The visualized portions of the heart are within normal limits. Normal liver. Normal gallbladder and extrahepatic biliary system. Normal spleen. Normal pancreas. There is a stable 3.7 cm x 2.8 cm low attenuation nodule in the left adrenal gland suggestive of possible myelolipoma. Normal right kidney. Normal left kidney. Normal visualized stomach. Normal small intestine. Normal colon. The appendix is visualized and appears normal. There is diffuse atherosclerotic calcification of the abdominal aorta. There is dilatation of the distal abdominal aorta with a transverse dimension of 3 cm. Normal inferior vena cava. Normal retroperitoneum. Normal urinary bladder. Normal abdominal wall. There are mild degenerative changes of the visualized lumbar spine. CT/Abdomen/Pelvis without Cont IMPRESSION: Stable infrarenal abdominal aortic aneurysm. Stable low-attenuation mass in the left adrenal gland. Electronically Signed: Vinh Win MD at 13:40 EDT ,
[2023-03-21 13:08] LABS: Absolute Lymphocyte Count 2.36 X10^3/uL (0.83-4.51); Absolute Neutrophil Count 3.6 X10^3/uL (2.0-7.7); Basophil# 0.08 X10^3/uL; Basophil% 1.2 % (0-1); Eosinophil# 0.13 X10^3/uL; Eosinophils% 1.9 % (0-5); Hematocrit 40.1 % (37-47); Hemoglobin 13.6 g/dL (12.0-15.0); Lymphocyte # 2.36 X10^3/ul (0.83-4.51); Lymphocyte % 35.3 % (19-41); Mean Corp Hgb Conc 33.9 g/dL (32-36); Mean Corpuscular Hgb 30.1 pg (27.0-32.0); Mean Corpuscular Volume 88.7 fL (81-99); Mean Platelet Vol. 10.1 fl (6.2-12.0); Monocyte# 0.51 X10^3/uL; Monocyte% 7.6 % (0-10); NRBC Flagged by Analyzer 0 % (0-5); Neutrophil # 3.59 X10^3/uL (2.7-7.7); Neutrophil % 53.7 % (47-70); Platelet Count 288 K/mm3 (150-450); RBC Distribution Width CV 13.9 % (11.6-14.6); RBC Distribution Width SD 44.7 fl (35.1-43.9); Red Blood Count 4.52 M/mm3 (4.2-5.4); White Blood Count 6.7 K/mm3 (4.4-11.0)
[2023-03-21] MEDS: 0.9% Normal Saline (1000mL) 1,000 ML 1000 ML IV (13:11)
[2023-03-21 13:26] LABS: Anion Gap 3 (5-15); BUN 15 mg/dL (7-18); BUN/Creat Ratio 19.4 RATIO (10-20); Calcium,Total 8.9 mg/dL (8.5-10.1); Chloride 106 mmol/L (98-107); Creatinine, Serum 0.77 mg/dL (0.55-1.02); EST Glomerular Filtration Rate 81 mL/min (>60); Est Glom Filt Rate - Afr Amer 98 mL/min (>60); Estimated Creatinine Clearance 70.79 ml/min; Glucose 110 mg/dL (74-106); Potassium 3.7 mmol/L (3.5-5.1); Sodium Level 139 mmol/L (136-145)
[2023-03-21 14:57] VITALS: BP 128/63; PULSE 71; RESP 15; O2SAT 96
== END 2023-03-21 14:57 | disposition home or self-care (01) ==
PROVIDERS: Emergency Provider Emergency Medicine; PCP Family Medicine; Visit Provider Emergency Medicine
DX: R30.0 Dysuria (principal)
CPT/HCPCS: 74176; 80048; 81001; 85025; 96360; 99283; J7030